=== PATIENT | female | born 1990 | race Caucasian/White ===

== ENCOUNTER 2020-08-24 06:10 | Inpatient (IN) | payer OTHER, SELFPAY ==
[2020-08-24] VITALS (200 sets, daily range): BP systolic 90–135; BP diastolic 41–98; PULSE 57–131; TEMP 36.5–36.9; O2SAT 97–100; BMI 38.7
[2020-08-24 06:44] LABS: Basophils Absolute Auto 0.1 K/mm3 (0.0-0.1); Basophils Percent Auto 0.5 % (0.2-1.2); Eosinophils Absolute Auto 0.3 K/mm3 (0-0.3); Hematocrit 35.5 % (37.0-47.0); Hemoglobin 12.1 g/dL (12.0-15.0); Immature Granulocyte Absolute 0.64 K/mm3 (0.00-0.031); Immature Granulocyte Percent A 4.2 % (0-0.5); Lymphocytes Absolute Auto 2.53 K/mm3 (0.9-3.2); Lymphocytes Percent Auto 16.5 % (18.3-44.2); Mean Corpuscular HGB Conc 34.1 g/dl (32-36); Mean Corpuscular Hemoglobin 31.5 pg (26-34); Mean Corpuscular Volume 92.4 fl (80-100); Mean Platelet Volume 10.8 fl (7.4-10.4); Monocytes Absolute Auto 1.1 K/mm3 (0.1-0.6); Monocytes Percent Auto 6.9 % (2.6-8.5); Neutrophils Absolute Auto 10.7 K/mm3 (1.3-6.7); Neutrophils Percent Auto 69.9 % (45.5-73.1); Platelet Count Result 192 k/mm3 (150-375); Red Blood Count 3.84 M/mm3 (4.2-5.4); Red Cell Distribution Width 13.1 % (11.5-14.5); White Blood Count 15.3 K/mm3 (4.5-10.0)
[2020-08-24] MEDS: OXYTOCIN 30 UNITS/NS 500 ML 30 UNITS/500 ML BAG IV CONT (06:49)
[2020-08-24] MEDS: LACTATED RINGERS 1,000 ML 125 ML IV CONT ×4 (06:49→23:21)
--- NOTE | 2020-08-24 07:17 | WPDANESEPP ---
Anes - Eval Pre Procedure Procedure: labor epidural Date/Time: 08/24/20 07:17 Surgeon: Chaparrita Pre Op Diagnosis: ind Patient Data Age: 30 Gender: F Height: 1.57 m Weight: 96 kg Last Vital Signs Pulse 100 08/24/20 07:15 BP 117/72 08/24/20 07:15 Allergies Allergy/AdvReac Type Severity Reaction Status Date / Time No Known Allergies Allergy Verified 08/15/20 15:40 Home Medications Medication Instructions Recorded Confirmed Type prenat.vits,jeff,mfy-vqlb-lofxl 1 tablet PO DAILY 08/15/20 08/15/20 History [ #2] Laboratory Tests 08/24/20 08/24/20 06:32 06:32 WBC 15.3 K/mm3 H K/mm3 (4.5-10.0) RBC 3.84 M/mm3 L M/mm3 (4.2-5.4) Hgb 12.1 g/dL g/dL (12.0-15.0) Hct 35.5 % L % (37.0-47.0) MCV 92.4 fl fl (80-100) MCH 31.5 pg pg (26-34) MCHC 34.1 g/dl g/dl (32-36) RDW 13.1 % % (11.5-14.5) Plt Count 192 k/mm3 k/mm3 (150-375) MPV 10.8 fl H fl (7.4-10.4) Immature Gran % (Auto) 4.2 % H % (0-0.5) Neut % (Auto) 69.9 % % (45.5-73.1) Lymph % (Auto) 16.5 % L % (18.3-44.2) [place] % (Auto) 6.9 % % (2.6-8.5) Eos % (Auto) 2.0 % % (0-4.4) Baso % (Auto) 0.5 % % (0.2-1.2) Lymph # (Auto) 2.53 K/mm3 K/mm3 (0.9-3.2) [place] # (Auto) 1.1 K/mm3 H K/mm3 (0.1-0.6) Eos # (Auto) 0.3 K/mm3 K/mm3 (0-0.3) Baso # (Auto) 0.1 K/mm3 K/mm3 (0.0-0.1) Abs Immat Gran (auto) 0.64 K/mm3 H K/mm3 (0.00-0.031) Absolute Neuts (auto) 10.7 K/mm3 H K/mm3 (1.3-6.7) Absolute Nucleated RBC 0.0 K/mm3 K/mm3 (0.0-0.012) Nucleated RBC % 0.0 % % (0.0-0.2) RPR Pending Patient hx anesthesia problems: none Family hx anesthesia problems: none [facility] Past Medical History Medical History (Updated 08/24/20 @ 07:18 by Roxanne Iverson CRNA) Psoriatic arthritis Family History Family History (Updated 08/15/20 @ 15:54 by Sloan Leggett RN) Grandparent Diabetes mellitus Congestive heart failure Kidney failure Son Congenital absence of one kidney Social History Social History Smoking packs per day: 0.25 Smoking cigarettes per day: 5.0 Years smoked: 15 Smoking pack-years: 3.75 Smoking status: Light tobacco smoker Tobacco type: cigarettes Second hand tobacco smoke exposure: Yes Substance use: never Spiritual care concerns: No Exam Day of Procedure 08/24/20 07:17
--- NOTE | 2020-08-24 07:48 | PM.IMHP ---
H&P: HPI History of Present Illness Date/Time: 08/24/20 07:48 Darvin is a 30yo @ 40.0wks (OTTONIEL 08/24/20) who presents for elective induction. Good movement. Mild ctxs. No VB, LOF. Her is complicated by: - tobacco abuse - mild anemia on iron - Parvo non-immune Chief Complaint: induction Review of Systems Review of Systems: All systems reviewed & are unremarkable except as noted in HPI and below (HPI) COUNT INCLUDES THE [facility] Past Medical History Medical History Psoriatic arthritis Family History Family History Grandparent Diabetes mellitus Congestive heart failure Kidney failure Son Congenital absence of one kidney Social History Social History Smoking packs per day: 0.25 Smoking cigarettes per day: 5.0 Years smoked: 15 Smoking pack-years: 3.75 Smoking status: Light tobacco smoker Tobacco type: cigarettes Second hand tobacco smoke exposure: Yes Substance use: never Spiritual care concerns: No Meds Home Medications and Allergies Home Medications Medication Instructions Recorded Confirmed Type prenat.vits,jeff,pit-ccxb-xvnab 1 tablet PO DAILY 08/15/20 08/15/20 History [ #2] Allergies Allergy/AdvReac Type Severity Reaction Status Date / Time No Known Allergies Allergy Verified 08/15/20 15:40 Vital Signs Vital Signs - 24 hr 08/24/20 06:51 08/24/20 07:00 08/24/20 07:15 Pulse Rate 107 H 113 H 100 Blood Pressure 117/70 114/65 117/72 08/24/20 07:30 08/24/20 07:45 Pulse Rate 108 H 79 Blood Pressure 115/72 122/65 Exam Const: General: cooperative, healthy appearing, comfortable and no acute distress Resp: Effort & Inspection: normal respiratory effort and able to speak in complete sentences Cardio: Rate: regular rate GI: GI Palp: No abdominal tenderness and Yes Soft to palpation : Other: FHT's: 140's/ mod elyssa/ + accels/ no decels - cat 1 TOCO: ctx's q 2-4min Cervix: 2/50/-3 Membranes: intact presentation: cephalic Skin: General skin exam: normal color Neuro: General: patient oriented x3 Extrem: General: normal to inspection Psych: Appearance: grossly normal Affect: normal affect Attitude: cooperative H&P: Results Labs Labs: Short CBC 08/24/20 Range/Units 06:32 WBC 15.3 H (4.5-10.0) K/mm3 Hgb 12.1 (12.0-15.0) g/dL Hct 35.5 L (37.0-47.0) % Plt Count 192 (150-375) k/mm3 Assessment and Plan Assessment and plan (1) : Qualifiers: Weeks of gestation: 40 weeks Qualified Code(s): Z3A.40 - 40 weeks gestation of Code(s): Z34.90 - Encounter for supervision of normal , unspecified, unspecified trimester Status: Acute (2) Elective induction of labor planned: Status: Acute Additional Plan - Admit to L&D for IOL - Pitocin per protocol; plan to AROM when sachin regularly - Continuous monitoring; reassuring FHT - GBS neg - Anesthesia consult PRN pain
--- NOTE | 2020-08-24 07:55 | WPDHPUPDATE1 ---
History and Physical Update Update Date/Time: 08/24/20 07:55 History and Physical has been reviewed, including an updated exam of the patient. There are NO changes in the patient's condition. Risks, benefits, and alternatives have been discussed and questions answered. Patient agrees to proceed with procedure.
[2020-08-24 09:27] LABS: Rapid Plasma Reagin Non-Reactive (NonReactive)
--- NOTE | 2020-08-24 12:27 | PM.OBPNLAB ---
Pain Control Date/time seen: 08/24/20 12:27 Pain control: tolerating well Comments: wanting epidural now Pelvic Exam Dilation (cm): 4 Effacement (%): 50 station: -2 Amniotic membrane status: Ruptured (clear on this exam) Contractions Monitor mode: External Contraction frequency: 3 Status status: Category ll Comments: 140's/ mod elyssa/ + accels/ occasional variable decel - cat 2, reassuring Assessment and Plan Pitocin rate (mU/min): 14 Assessment: induction ongoing Plan: continuous present management Comments: anesthesia consult for epidural
--- NOTE | 2020-08-24 16:41 | PM.OBPNLAB ---
Pain Control Date/time seen: 08/24/20 16:41 Pain control: tolerating well and epidural Pelvic Exam Dilation (cm): 4 (.5) Effacement (%): 60 station: -2 Amniotic membrane status: Ruptured (clear) Contractions Monitor mode: Internal Contraction frequency: 2 Contraction pattern: Regular Intrauterine tone measurement: 50 Status status: Category l Comments: 130's/mod elyssa/ + accels/ no decels Assessment and Plan Pitocin rate (mU/min): 16 Assessment: induction ongoing Plan: continuous present management Comments: - latent phase; cervix softer, more effaced and slightly more dilated-- continue pitocin - head asynclitic, will try peanut ball
[2020-08-24] MEDS: ACETAMINOPHEN 500 MG TABLET 1000 MG PO (20:26)
--- NOTE | 2020-08-24 22:51 | PM.OBPNLAB ---
Pain Control Date/time seen: 08/24/20 22:51 Pain control: tolerating well and epidural Pelvic Exam Dilation (cm): 6 Effacement (%): 80 station: -2 Amniotic membrane status: Ruptured (clear @ 1220 on 08/24/20) Comments: active labor starting @ 2150 Contractions Monitor mode: Internal Contraction frequency: 3 (-4min) Contraction pattern: Regular Intrauterine tone measurement: 50 Status status: Category ll Comments: 130s/ mod elyssa/ + accels/ variable decels - reassuring Assessment and Plan Pitocin rate (mU/min): 16 Assessment: active labor Comments: - Active labor but protracted; contractions inadequate; has 6hrs to make change or would be considered arrest of active phase and c/s would be indicated, otherwise increasing risk of infection and bleeding - pitocin halved and restarted; continue increasing per protocol to obtain adequate contractions
[2020-08-25] VITALS (104 sets, daily range): BP systolic 96–141; BP diastolic 37–90; PULSE 63–238; RESP 16–18; TEMP 36.8–38.2; O2SAT 93–100
[2020-08-25] MEDS: ONDANSETRON INJ 4 MG/2 ML VIAL IV PUSH (01:56)
[2020-08-25] MEDS: LACTATED RINGERS 1,000 ML 125 ML IV CONT (04:51)
[2020-08-25] MEDS: AMPICILLIN 2 GM/NS 100 ML 2 GM/100 ML BAG IVPB ×3 (04:51→21:08)
[2020-08-25] MEDS: GENTAMICIN SULFATE INJ 340 MG in DEXTROSE 5% 100 ML 96.88 MG IVPB (04:52)
--- NOTE | 2020-08-25 06:19 | PM.OBPNLAB ---
Pain Control Date/time seen: 08/25/20 06:19 Pain control: tolerating well and epidural Pelvic Exam Dilation (cm): 9 Effacement (%): 100 station: 0 Amniotic membrane status: Ruptured (clear @ 1220 on 08/24/20) Comments: + fever; now being treated w/ amp and gent for chorio Contractions Monitor mode: Internal Contraction frequency: 3 (-4min) Contraction pattern: Regular Status status: Category ll Comments: 160's/ mod elyssa/ + accels/ occasional variables when pushing Assessment and Plan Pitocin rate (mU/min): 14 Comments: - Protracted labor course (concerned for OP), now 9cm w/ stretchy cervix - Pushing attempted; cervix reducible but won't stay back, sitting up for ~30min - Plan for
--- NOTE | 2020-08-25 07:06 | PM.OBPNLAB ---
Pain Control Date/time seen: 08/25/20 07:06 Pelvic Exam Dilation (cm): 9 Effacement (%): 100 station: 0 Amniotic membrane status: Ruptured (clear @ 1220 on 08/24/20) Contractions Monitor mode: Internal Contraction frequency: 3 (-4min) Contraction pattern: Regular Intrauterine tone measurement: 50 Status status: Category ll Comments: 180's/ mod elyssa/ + accels/ variable decels Assessment and Plan Plan: Comments: proceed w/ pLTCS due to tachycardia in the setting of arrest of active phase
--- NOTE | 2020-08-25 07:11 | WPDANESEFPP ---
Anes - Eval Final PreProcedure Day of Procedure 08/25/20 07:11 Patient weight: obese Heart: tachycardia Lungs: clear to auscultation Airway: Mallampati scale class II Neurological: alert and oriented ASA classification: II Emergent: yes Anesthetic plan: proceed Anesthesia type and monitoring: regional (use existing epidural) epidural and standard monitoring Informed Consent: The patient's anesthetic plan and its attendant risks and benefits were discussed with the patient/family/POA. Questions were solicited and answers provided to the satisfaction of the patient/family/POA.
[2020-08-25] MEDS: ceFAZolin 2 GM/D5W 50 ML 2 GM/50 ML BAG IVPB (07:24)
--- NOTE | 2020-08-25 08:21 | P.PCNOB_ITS ---
OB - Delivery Note Procedure Delivery date: 08/25/20 events: Labor Induction Intrapartal events: Chorioamnionitis and Failure to Progress in Labor Induction method: per pitocin protocol Delivery augmentation: rupture of membranes Delivery monitor: external FHT and internal FHT Route of delivery: Quantitative Blood Loss (ml): 1,060 Anesthesia type: Epidural Disposition: PACU [place] Baby Date of : 08/25/20 Time of : 07:41 Weeks of gestation at delivery: 40 gender: Female Weight (pounds): 7 Weight (ounces): 15 presentation: vertex position: Left Occiput Anterior Placenta delivery description: Expressed cord vessel description: 3 Vessels score one minute: 8 score five minutes: 9 Narrative: She was counseled on all risks and benefits in detail. She was taken to the operating room where epidural was noted to be adequate. She was then prepped and draped in the normal sterile fashion. She received 2g Ancef and a time out was performed. A Pfannenstiel incision was made in the skin and carried down to the underlying fascia. The fascia was nicked on either side of the midline and the fascial incision was extended laterally and superiorly. The fascia was then elevated and the underlying rectus muscles were dissected off the fascia, superiorly and inferiorly. The rectus muscles were then in the midline and the peritoneum was entered bluntly. Once adequate exposure was obtained, a Mobix self retractor was placed within the abdomen. A bladder flap was created. A low transverse incision was made on the lower uterine segment and clear fluid was noted. The occiput was brought to the hysterotomy and the head was easily delivered. The shoulder and body then followed without complications. The fetus had spontaneous cry and the mouth and nose were bulb suctioned. The cord was clamped and cut and the fetus was handed off to the awaiting pediatric nurse. A segment of the cord was collected for cord gases. The remaining cord blood was collected for typing. With pitocin infusing, the placenta delivered with gentle traction on the cord without complications. The uterus was then cleared out of all clots and debris using a clean, moist lap. The hysterotomy was then repaired in a running, interlocking fashion using 0 Vicryl. A second layer imbricating suture was then made using 0 Vicryl. Small areas of oozing were noted and three figure of eight sutures using 0 Vicryl were placed. The hysterotomy was found to be hemostatic and good uterine tone was noted. The bilateral adnexa were examined and found to be normal. The pelvis was cleared of all clots and fluid. The Mobix retractor was removed from the abdomen. The peritoneum, muscle, and fascia were examined and made hemostatic with bovie cautery. The fascia was then repaired using two separate 0 Vicryl sutures in a running fashion. The subcutaneous tissue was then profusely irrigated and made hemostatic with bovie cautery. The subcutaneous tissue was then reapproximated using 2-0 Vicryl. The skin was then closed using 4-0 Monocryl in a running subcuticular fashion. The patient was cleaned and a Mepalex dressing was placed over the incision. Sponge, lap, needle and instrument counts were correct at the end of the procedure x2. The patient tolerated the procedure well and was taken to recovery in a stable condition; she will continue on triple antibiotics for 24 hrs.
[2020-08-25] MEDS: AMPICILLIN 1 GM/NS 50 ML 1 GM/50 ML BAG IVPB ×2 (09:00→09:46)
[2020-08-25] MEDS: OXYTOCIN 30 UNITS/NS 500 ML 30 UNITS/500 ML BAG 125 UNITS IV CONT (09:00)
[2020-08-25] MEDS: KETOROLAC 30 MG/ML VIAL (*BKC) IV PUSH ×3 (09:46→21:47)
--- NOTE | 2020-08-25 10:26 | PC.NURSE ---
Patient transferred to post room #284 per stretcher from labor and delivery. Support person present. Oriented to unit, room, information board, rooming in, admission packet and security measures. Patient verbalizes understanding.
[2020-08-25] MEDS: DEXTROSE 5%/0.45% SOD CHL 1,000 ML 125 ML IV CONT (10:59)
[2020-08-25] MEDS: CLINDAMYCIN 900 MG/D5W 50 ML 900 MG/50 ML PIGGYBACK 50 MG IVPB ×2 (10:59→19:01)
[2020-08-26] VITALS: BP 95/58; PULSE 83; RESP 18; TEMP 36.8; O2SAT 99
[2020-08-26] MEDS: CLINDAMYCIN 900 MG/D5W 50 ML 900 MG/50 ML PIGGYBACK 50 MG IVPB (02:23)
[2020-08-26] MEDS: AMPICILLIN 2 GM/NS 100 ML 2 GM/100 ML BAG IVPB (03:39)
[2020-08-26] MEDS: GENTAMICIN SULFATE INJ 340 MG in DEXTROSE 5% 100 ML 96.88 MG IVPB (05:36)
[2020-08-26] MEDS: HYDROcodone/acetaminophen (*CRX) 5-325 MG TABLET 1 TAB PO (05:37)
[2020-08-26 06:20] LABS: Basophils Absolute Auto 0.1 K/mm3 (0.0-0.1); Basophils Percent Auto 0.4 % (0.2-1.2); Eosinophils Absolute Auto 0.2 K/mm3 (0-0.3); Eosinophils Percent Auto 0.7 % (0-4.4); Hematocrit 27.5 % (37.0-47.0); Hemoglobin 9.1 g/dL (12.0-15.0); Immature Granulocyte Absolute 0.52 K/mm3 (0.00-0.031); Lymphocytes Absolute Auto 2.22 K/mm3 (0.9-3.2); Lymphocytes Percent Auto 8.7 % (18.3-44.2); Mean Corpuscular HGB Conc 33.1 g/dl (32-36); Mean Corpuscular Hemoglobin 31.4 pg (26-34); Mean Corpuscular Volume 94.8 fl (80-100); Mean Platelet Volume 10.9 fl (7.4-10.4); Monocytes Absolute Auto 1.8 K/mm3 (0.1-0.6); Monocytes Percent Auto 7.1 % (2.6-8.5); Neutrophils Absolute Auto 20.7 K/mm3 (1.3-6.7); Neutrophils Percent Auto 81.1 % (45.5-73.1); Platelet Count Result 141 k/mm3 (150-375); Red Cell Distribution Width 13.2 % (11.5-14.5); White Blood Count 25.5 K/mm3 (4.5-10.0)
[2020-08-26 06:26] VITALS: BP 111/67; PULSE 89; RESP 18; TEMP 36.8; O2SAT 100
--- NOTE | 2020-08-26 07:50 | WPDANLDPN2 ---
Anes-Prog Note L&D Date/Time: 08/26/20 07:50 Comfortable throughout: labor and section Neuraxial method: epidural Epidural/Spinal procedure site: clean & non-tender Neuro status: Neuro function grossly intact. Cardiovascular status: normal Respiratory status: normal Airway patency: baseline Mental status: baseline Post-Op hydration status: normal Vital Signs: Last Vital Signs Temp 36.8 C 08/26/20 06:26 Pulse 89 08/26/20 06:26 Resp 18 08/26/20 06:26 BP 111/67 08/26/20 06:26 Pulse Ox 100 08/26/20 06:26 Pain score (VAS): 4 I/O: Intake & Output 08/25/20 08/25/20 08/26/20 15:59 23:59 07:59 Intake Total 882 797 9600 Output Total 830 275 Balance -[phone] Post-procedural complaints: none Patient feedback: Patient satisfied with anesthetic care.
--- NOTE | 2020-08-26 07:50 | WPDANLDNPN2 ---
Anes-Prog Note L&D-Neuraxial Date/Time: 08/26/20 07:50 Neuraxial medications: epidural PF morphine Opiod-related complaints: none Patient feedback: Patient satisfied with post-operative pain management.
[2020-08-26 08:25] VITALS: BP 114/66; PULSE 90; RESP 18; TEMP 36.6; O2SAT 100
[2020-08-26 09:00] VITALS: PULSE 90; RESP 18; O2SAT 100
[2020-08-26] MEDS: SIMETHICONE 80 MG TAB.CHEW PO ×2 (09:37→14:22)
[2020-08-26] MEDS: MULTIVIT/MIN/PREN/FOL AC/IRON TABLET 1 TAB PO (09:38)
[2020-08-26] MEDS: IBUPROFEN 600 MG TABLET PO (09:38)
[2020-08-26] MEDS: POLYSACCHARIDE IRON COMPLEX 150 MG CAPSULE PO (09:38)
[2020-08-26] MEDS: DOCUSATE SODIUM 100 MG CAPSULE PO (09:39)
[2020-08-26] MEDS: HYDROcodone/acetaminophen (*CRX) 10-325 MG TABLET 1 TAB PO ×3 (09:39→19:28)
--- NOTE | 2020-08-26 10:11 | P.PNOB_ITS ---
OB - PN: Subj Subjective Date/time seen: 08/26/20 10:11 POD#1 Darvin reports doing well today. Her pain is not fully controlled but only took one pain pill overnight. She reports tolerating regular diet. She has voided and passed gas. She reports her bleeding is light. She has ambulated in the room; denies symptoms of anemia. She is . No issues w/ her incision. She has completed her 24hrs of antibiotics. No CP, SOB, fever, chills, WOOD, vision changes, N/V, dizziness, or palpitations. OB - PN: Obj Data Labs CBC & Chem 7: 08/26/20 06:06 Labs: Laboratory Results - last 24 hr 08/26/20 06:06 WBC 25.5 H RBC 2.90 L Hgb 9.1 L D Hct 27.5 L MCV 94.8 MCH 31.4 MCHC 33.1 RDW 13.2 Plt Count 141 L MPV 10.9 H Immature Gran % (Auto) 2.0 H Neut % (Auto) 81.1 H Lymph % (Auto) 8.7 L [place] % (Auto) 7.1 Eos % (Auto) 0.7 Baso % (Auto) 0.4 Lymph # (Auto) 2.22 [place] # (Auto) 1.8 H Eos # (Auto) 0.2 Baso # (Auto) 0.1 Abs Immat Gran (auto) 0.52 H Absolute Neuts (auto) 20.7 H Absolute Nucleated RBC 0.0 Nucleated RBC % 0.0 OB - PN A/P Assessment and Plan (1) S/P primary low transverse : Code(s): Z98.891 - History of uterine scar from previous surgery Status: Acute (2) Chorioamnionitis: Qualifiers: Fetus number: single or unspecified fetus Trimester: third trimester Qualified Code(s): O41.1230 - Chorioamnionitis, third trimester, not applicable or unspecified Code(s): O41.1290 - Chorioamnionitis, unspecified trimester, not applicable or unspecified Status: Acute (3) Anemia: Qualifiers: Other causes of anemia: acute posthemorrhagic Anemia type: other cause Qualified Code(s): D62 - Acute posthemorrhagic anemia Code(s): D64.9 - Anemia, unspecified Status: Acute Plan day: 1 Plan: routine care Comments: - s/p 24 hrs of antibiotics; afebrile, will repeat CBC in am to verify WBC is down trending - pt encouraged to take 2 pain pills q4-6hr to better control pain - poss d/c home tomorrow Time Spent With Patient Time: Total time spent is greater than 50% in coordination of care (as documented) at patient's floor/unit and/or counseling patient: Review of Systems Review of Systems: All systems reviewed & are unremarkable except as noted in HPI and below (HPI) Exam Const: General: cooperative, healthy appearing, comfortable and no acute distress Resp: Effort & Inspection: normal respiratory effort and able to speak in complete sentences Auscultation: clear to auscultation bilaterally Cardio: Rate: regular rate GI: Inspection: non-distended GI Palp: Yes abdominal tenderness and Yes Soft to palpation Auscultation: normal bowel sounds Other: pfannenstiel incision covered w/ clean dressing : Other: fundus firm below umbilicus Skin: General skin exam: normal color Neuro: General: patient oriented x3 Psych: Appearance: grossly normal Affect: normal affect Attitude: cooperative
[2020-08-26 19:51] VITALS: BP 132/72; PULSE 90; RESP 18; TEMP 36.8; O2SAT 100
[2020-08-27] MEDS: HYDROcodone/acetaminophen (*CRX) 10-325 MG TABLET 1 TAB PO ×2 (02:31→14:56)
[2020-08-27 05:12] LABS: Basophils Absolute Auto 0.1 K/mm3 (0.0-0.1); Basophils Percent Auto 0.3 % (0.2-1.2); Eosinophils Absolute Auto 0.4 K/mm3 (0-0.3); Eosinophils Percent Auto 2.3 % (0-4.4); Hemoglobin 8.6 g/dL (12.0-15.0); Immature Granulocyte Absolute 0.31 K/mm3 (0.00-0.031); Immature Granulocyte Percent A 1.8 % (0-0.5); Lymphocytes Absolute Auto 2.42 K/mm3 (0.9-3.2); Lymphocytes Percent Auto 14.2 % (18.3-44.2); Mean Corpuscular HGB Conc 33.1 g/dl (32-36); Mean Corpuscular Hemoglobin 30.9 pg (26-34); Mean Corpuscular Volume 93.5 fl (80-100); Mean Platelet Volume 10.4 fl (7.4-10.4); Monocytes Absolute Auto 1.3 K/mm3 (0.1-0.6); Monocytes Percent Auto 7.3 % (2.6-8.5); Neutrophils Absolute Auto 12.6 K/mm3 (1.3-6.7); Neutrophils Percent Auto 74.1 % (45.5-73.1); Platelet Count Result 139 k/mm3 (150-375); Red Blood Count 2.78 M/mm3 (4.2-5.4); Red Cell Distribution Width 13.2 % (11.5-14.5); White Blood Count 17.1 K/mm3 (4.5-10.0)
[2020-08-27] MEDS: HYDROcodone/acetaminophen (*CRX) 5-325 MG TABLET 1 TAB PO ×2 (05:46→10:34)
--- NOTE | 2020-08-27 08:28 | PM.OBDSVD ---
DS: Admitting Diagnosis Admitting Diagnosis Admitting Diagnosis: Induction of labor DS: Discharge Diagnosis Discharge Diagnosis (1) S/P primary low transverse : Code(s): Z98.891 - History of uterine scar from previous surgery Status: Acute (2) Chorioamnionitis: Qualifiers: Fetus number: single or unspecified fetus Trimester: third trimester Qualified Code(s): O41.1230 - Chorioamnionitis, third trimester, not applicable or unspecified Code(s): O41.1290 - Chorioamnionitis, unspecified trimester, not applicable or unspecified Status: Acute (3) Anemia: Qualifiers: Anemia type: other cause Other causes of anemia: acute posthemorrhagic Qualified Code(s): D62 - Acute posthemorrhagic anemia Code(s): D64.9 - Anemia, unspecified Status: Acute OB - DS: Summary Hospital Course Hospital Course: Was treated for chorioamnionitis, 24hrs of antibioptics continued. Afebrile. WBC counts trending down. OB Procedures : None OB Procedures Intrapartum: low cervical, transverse OB Procedures: : None Peripartum Data Procedures: Procedures Operation Date: 08/25/20 07:15 Actual Procedures Side Surgeon p Section Sandra Varma MD Time Spent with Patient Time attestation: Total time spent providing and/or coordinating discharge services: Exam Const: General: cooperative, healthy appearing, comfortable and no acute distress Orientation/consciousness: patient oriented x3 Resp: Effort & Inspection: normal respiratory effort and able to speak in complete sentences Auscultation: clear to auscultation bilaterally Cardio: Rate: regular rate GI: Inspection: non-distended Auscultation: normal bowel sounds Other: pfannenstiel incision covered w/ clean dressing : Other: fundus firm below umbilicus Skin: General skin exam: normal color Neuro: General: patient oriented x3 Extrem: General: normal to inspection Psych: Appearance: grossly normal Affect: normal affect Attitude: cooperative DS: Data Data Completed and Pending Pending studies at discharge: Pending at discharge 08/25/20 07:43 Surgical [PTH] Routine Labs on day of discharge: Labs from last 24 hours 08/27/20 05:08 WBC 17.1 H RBC 2.78 L Hgb 8.6 L Hct 26.0 L MCV 93.5 MCH 30.9 MCHC 33.1 RDW 13.2 Plt Count 139 L MPV 10.4 Immature Gran % (Auto) 1.8 H Neut % (Auto) 74.1 H Lymph % (Auto) 14.2 L [place] % (Auto) 7.3 Eos % (Auto) 2.3 Baso % (Auto) 0.3 Lymph # (Auto) 2.42 [place] # (Auto) 1.3 H Eos # (Auto) 0.4 H Baso # (Auto) 0.1 Abs Immat Gran (auto) 0.31 H Absolute Neuts (auto) 12.6 H Absolute Nucleated RBC 0.0 Nucleated RBC % 0.0 Discharge Plan Discharge Attending physician on discharge: Sandra Varma Discharging Clinician: Sandra Varma Anticipated Discharge Date/Time: 08/27/20 14:00 Patient Disposition: Home, Self-Care Activity: may shower and pelvic rest Diet: regular Wound Care Instructions: incision open to air Patient Instructions: Antibiotic Form, How to Stop Smoking (GEN), Cigarette Smoking and Your Health (GEN) Stand Alone Forms: General Discharge Information Follow-up/Referrals: Sandra Varma MD [Physician] - 4 Weeks Discharge Medications: New acetaminophen [Mapap (acetaminophen)] 325 mg Tablet 650 mg PO Q6H PRN (Reason: Mild Pain (1-3)) 10 Days Qty: 90 RF: 0 docusate sodium 100 mg Capsule 100 mg PO BID 30 Days Qty: 60 RF: 0 hydrocodone-acetaminophen 5-325 mg Tablet 1 tablet PO Q3H PRN (Reason: Moderate Pain (4-6)) 3 Days Qty: 20 RF: 0 ibuprofen 600 mg Tablet 600 mg PO Q6H PRN (Reason: Cramping) 10 Days Qty: 40 RF: 0 polysaccharide iron complex 150 mg iron Capsule 150 mg PO BIDWM 30 Days Qty: 60 RF: 0 Continued prenat.vits,jeff,mao-aobl-dfeda Tablet 1 tablet PO DAILY 90 Days Qty: 90 RF: 0 Date of admission:
[2020-08-27 09:00] VITALS: PULSE 83; RESP 18; O2SAT 96
[2020-08-27] MEDS: DOCUSATE SODIUM 100 MG CAPSULE PO ×2 (10:33)
[2020-08-27] MEDS: POLYSACCHARIDE IRON COMPLEX 150 MG CAPSULE PO (10:33)
[2020-08-27] MEDS: IBUPROFEN 600 MG TABLET PO ×2 (10:35→14:55)
[2020-08-27 11:22] VITALS: BP 99/58; PULSE 83; RESP 18; TEMP 36.4; O2SAT 96
== END 2020-08-27 15:05 | disposition home or self-care (01) | DRG 540 ==
LOC: ANHLDR 11:34 → ANHOB2 08-25 10:41
PROVIDERS: Obstetrics & Gynecology; Admitting Provider Obstetrics & Gynecology; Visit Provider Obstetrics & Gynecology
PROC: 10D00Z1 Extraction of Products of Conception, Low, Open Approach (ICD-10-PCS; CPT 59514; principal; 2020-08-25 07:15)
DX: O99.02 Anemia complicating childbirth (principal); Z37.0 Single live birth; Z3A.40 40 weeks gestation of pregnancy; D64.9 Anemia, unspecified; O41.1230 Chorioamnionitis, third trimester, not applicable or unspecified; D62 Acute posthemorrhagic anemia; O62.0 Primary inadequate contractions; O99.72 Diseases of the skin and subcutaneous tissue complicating childbirth; L40.50 Arthropathic psoriasis, unspecified; O99.214 Obesity complicating childbirth; E66.9 Obesity, unspecified; O99.334 Smoking (tobacco) complicating childbirth; F17.210 Nicotine dependence, cigarettes, uncomplicated
CPT/HCPCS: 36415; 85025; 86592; 86850; 86900; 86901; 88307; A9270; J0131; J0290; J0690; J1580; J1885; J2175; J2274; J2405; J2590; J2795; J7120